=== PATIENT | male | born 1955 | race Caucasian/White ===

== ENCOUNTER → 2017-04-13 | Outpatient (CLI) | payer BC ==
[2017-04-13 13:42] LABS: HCT 47.3 % (39.0-53.0); HGB 14.7 gm/dL (13.0-17.5); MCH 31.2 pg (25.0-35.0); MCHC 31.1 g/dL (31.0-37.0); MCV 100.5 fL (80.0-100.0); Macrocytosis Slight; Mean Platelet Volume 8.3; Platelet Count 194 k/uL (150-450); RBC 4.71 m/uL (4.30-5.90); RDW 13.9 % (11.5-15.5); WBC 5.9 k/uL (3.8-10.6)
[2017-04-13 13:56] LABS: AST 27 U/L (17-59); Anion Gap 9 mmol/L; Blood Urea Nitrogen 16 mg/dL (9-20); Calcium 9.4 mg/dL (8.4-10.2); Carbon Dioxide 30 mmol/L (22-30); Chloride 103 mmol/L (98-107); Cholesterol 179 mg/dL (<200); Glucose 106 mg/dL (74-99); HDL Cholesterol 63 mg/dL (40-60); LDL Cholesterol,Calculated 100 mg/dL (0-99); Potassium 4.2 mmol/L (3.5-5.1); Sodium 142 mmol/L (137-145); Triglycerides 78 mg/dL (<150)
== END | disposition home or self-care (01) ==
LOC: LABWHC1 12:18
PROVIDERS: ATTEND Family Medicine
DX: I10 Essential (primary) hypertension (principal)
CPT/HCPCS: 36415; 80048; 80061; 84443; 84450; 85027

== ENCOUNTER → 2017-08-31 | Outpatient (CLI) | payer BC | END | disposition home or self-care (01) | LOC: LABWHC1 14:25 | PROVIDERS: ATTEND Urology | DX: R97.20 Elevated prostate specific antigen [PSA] (principal) | CPT/HCPCS: 36415; 84153 ==

== ENCOUNTER → 2018-03-01 | Outpatient (CLI) | payer BC ==
--- NOTE | 2018-03-01 13:59 | ECHOS ---
STRESS ECHOCARDIOGRAM DATE OF SERVICE: 03/01/2018 INDICATIONS: Chest pain. MEDICATIONS: BASELINE HEART RATE: 70 BASELINE BLOOD PRESSURE: 122/81 MAXIMUM HEART RATE: 141 MAXIMUM BLOOD PRESSURE: 198/59 85% MPHR: 133 100% MPHR: 157 METS: 10. MAXIMUM STAGE REACHED: III TOTAL EXERCISE TIME: 9 minutes 21 seconds CLINICAL INFORMATION: Baseline rhythm is sinus mechanism, rate of 70, normal axis and intervals. Normal electrocardiogram. Baseline blood pressure 122/81 mmHg. Patient exercised on Gagandeep protocol for 9 minutes 21 seconds achieving peak rate of 141 beats per minute which is equal to 89% of maximum predicted heart rate. Peak blood pressure 198/59 mmHg. Electrocardiograph monitoring revealed no evidence of diagnostic ischemic ST deviation. Baseline echocardiogram revealed normal wall thickening and motion. At peak exercise, there was normal wall motion augmentation with no hypokinesis or dyskinesis. CONCLUSION: 1. Good exercise tolerance with normal electrocardiograph response to exercise. 2. Normal stress echocardiogram with no evidence of stress induced ischemia. MMODL / IJN: [id number] /
== END | disposition home or self-care (01) ==
LOC: RADNMMAIN 09:54
PROVIDERS: ATTEND Family Medicine
DX: R07.89 Other chest pain (principal)
CPT/HCPCS: 93351; Q9950

== ENCOUNTER → 2019-02-19 | Outpatient (CLI) | payer BC ==
--- NOTE | 2019-02-19 14:41 | MR ---
EXAMINATION TYPE: MR Prostate wo/w con DATE OF EXAM: 02/19/2019 COMPARISON: None. IMAGE QUALITY: Good. INDICATION: Elevated prostate specific antigen PSA: 9.82 ng/ml on January 28, 2019. 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 TECHNIQUE: Examination was performed using a 3T MRI without an endorectal coil. Multiparametric imaging was perf ormed with T2 mutliplanar sequences, axial diffusion weighted imaging and dynamic contrast enhanced i maging, utilizing 12 mL intravenous Gadavist gadolinium contrast. FINDINGS: Peripheral zone appears normal on DWI/ADC imaging. Transitional zones shows heterogeneity without definitive area of hypointense signal. Seminal vesicles are within normal limits. Prostate capsule is maintained. No adjacent adenopathy is seen. Bladder shows no suspicious wall thickening or trabeculation. Visualized osseous structures are intact. No groin hernia or adenopathy. Suspicious bowel dilatation. No concerning pelvic fluid is present. Moderate disc space narrowing lumbosacral junction incidental ly noted. PROSTATE VOLUME: 4.5 cm SI x 4.1 cm AP x 5.6 cm LR Vol= 53.4 cc PSA DENSITY: 6.408 ng/ml/cc IMPRESSION: A focus of clinically significant cancer is not identified. Highest Assessment Category: 1 MRI Stage: T0 N0 M0 based on review of pelvic images. False negative rates for MRI range from 5-20% depending on risk profile. Assessment Categories: 1 ? Very low (clinically significant cancer is highly unlikely to be present) 2 ? Low (clinically significant cancer is unlikely to be present) 3 ? Intermediate (the presence of clinically significant cancer is equivocal) 4 ? High (clinically significant cancer is likely to be present) 5 ? Very high (clinically significant cancer is highly likely to be present) Locations: PZ = peripheral zone; TZ = transition zone CZ=central zone; AFS = anterior fibromuscular stroma a=anterior half (i.e. PZa=anterior half of peripheral zone); pm= posterior medial (i.e PZpm) pl = postero-lateral (i.e. PZpl); p = posterior half (i.e. TZp) ; a = anterior half (i.e TZa or P Za) Other: N=no or no; E= equivocal; Y=yes EPE = extraprostatic extension NVB = neurovascular bundle NA = not applicable/not available
== END ==
LOC: RADMRIMAIN 10:45
PROVIDERS: ATTEND Urology
DX: R97.20 Elevated prostate specific antigen [PSA] (principal)
CPT/HCPCS: 72197; A9585

== ENCOUNTER 2019-02-27 14:17 | Observation (INO) | payer BC ==
[2019-02-27] MEDS ORDERED: HEPARIN SODIUM,PORCINE 5,000 UNIT/ML 1 ML VIAL IV PRN (14:30)
[2019-02-27] MEDS ORDERED: HEPARIN SOD,PORK IN 0.45% NACL 25,000 UNIT in 0.45% NACL 1 250ML.BAG IV SCH (14:30)
[2019-02-27] MEDS ORDERED: ACETAMINOPHEN TAB 325 MG TAB PO PRN (14:32)
[2019-02-27] MEDS ORDERED: NALOXONE 0.4 MG/ML 1 ML VIAL IV PRN (14:32)
[2019-02-27] MEDS: DILTIAZEM 125 MG in SODIUM CHLORIDE 0.9% 100 ML IV SCH (14:48)
--- NOTE | 2019-02-27 14:49 | ED ---
General Adult HPI - General Stated complaint: Afib Time Seen by Provider: 02/27/19 14:18 Source: patient, EMS, RN notes reviewed, old records reviewed Mode of arrival: EMS Limitations: no limitations - History of Present Illness Initial comments: 63-year-old male presenting as transfer from outside hospital. Patient was scheduled for an outpatient EGD and colonoscopy, and preop he was found to be in atrial fibrillation with RVR. Patient had no specific complaints, no chest pain or dyspnea. He was initially evaluated at an outside emergency department and transferred to this institution for cardiology evaluation. Patient has history of hypertension, no history of CAD, no history of arrhythmia. Denies any symptoms at the time my evaluation, no fever chills, no abdominal pain, no nausea vomiting. Review of Systems ROS Statement: Those systems with pertinent positive or pertinent negative responses have been documented in the HPI. ROS Other: All systems not noted in ROS Statement are negative. Past Medical History Past Medical History: Atrial Fibrillation, Hypertension History of Any Multi-Drug Resistant Organisms: None Reported Past Surgical History: Hernia Repair Additional Past Surgical History / Comment(s): Hernia repair, left knee surgery Smoking Status: Light tobacco smoker Past Alcohol Use History: Daily General Exam Limitations: no limitations General appearance: alert, in no apparent distress Head exam: Present: atraumatic, normocephalic Eye exam: Present: normal appearance, PERRL ENT exam: Present: normal exam Neck exam: Present: normal inspection. Absent: tenderness, meningismus Respiratory exam: Present: normal lung sounds bilaterally. Absent: respiratory distress, wheezes Cardiovascular Exam: Present: tachycardia, irregular rhythm GI/Abdominal exam: Present: soft. Absent: distended, tenderness, guarding Extremities exam: Present: normal inspection, full ROM. Absent: pedal edema Neurological exam: Present: alert, oriented X3 Psychiatric exam: Present: normal affect, normal mood Skin exam: Present: warm, dry, intact Course Vital Signs 02/27/19 14:20 Temperature 98.1 F Pulse Rate 95 Respiratory 20 Rate Blood Pressure 118/89 O2 Sat by Pulse 96 Oximetry EKG Findings - EKG Comments: EKG Findings:: EKG: Atrial fibrillation, prolonged QT, rate of 88, QRS duration 96, QTC 486, no ST segment elevation. Medical Decision Making - Medical Decision Making 63-year-old male presenting with new onset atrial fibrillation with RVR. Patient's rate is controlled on Carrol nobleip which was initiated prior to transfer. He was also initiated on heparin prior to transfer. These medications will be continued. All laboratory testing will be repeated including CBC, CMP, troponin. These are pending. Case discussed with Dr. Perea, will admit patient with cardiology on consult. Disposition Clinical Impression: New onset atrial fibrillation, Atrial fibrillation with RVR Disposition: ADMITTED IP TO THIS HOSP Condition: Stable Is patient prescribed a controlled substance at d/c from ED?: No Referrals: David Lloyd MD [Primary Care Provider] - 1-2 days Decision to Admit Reason: Admit from EC Decision Date: 02/27/19 Decision Time: 14:49
[2019-02-27 14:56] LABS: Basophils % (A) 1 %; Eosinophils # (A) 0.2 k/uL (0-0.7); Eosinophils % (A) 3 %; HCT 43.3 % (39.0-53.0); HGB 14.1 gm/dL (13.0-17.5); Lymphocytes # (A) 2.6 k/uL (1.0-4.8); Lymphocytes % (A) 38 %; MCH 26.7 pg (25.0-35.0); MCHC 32.5 g/dL (31.0-37.0); MCV 82.1 fL (80.0-100.0); Mean Platelet Volume 7.4; Monocytes # (A) 0.4 k/uL (0-1.0); Monocytes % (A) 6 %; Neutrophils # (A) 3.4 k/uL (1.3-7.7); Neutrophils % (A) 51 %; Platelet Count 246 k/uL (150-450); RBC 5.28 m/uL (4.30-5.90); RDW 15.6 % (11.5-15.5); WBC 6.7 k/uL (3.8-10.6)
[2019-02-27 15:10] LABS: ALT 33 U/L (21-72); AST 39 U/L (17-59); African American GFR (CKD) >90 (>60 ml/min/1.73 sqM); Albumin 4.4 g/dL (3.5-5.0); Alkaline Phosphatase 52 U/L (38-126); Anion Gap 8 mmol/L; Blood Urea Nitrogen 13 mg/dL (9-20); Calcium 9.7 mg/dL (8.4-10.2); Carbon Dioxide 26 mmol/L (22-30); Chloride 105 mmol/L (98-107); Glucose 106 mg/dL (74-99); Non-African American GFR(CKD) >90 (>60 ml/min/1.73 sqM); Sodium 139 mmol/L (137-145); Total Protein 7.1 g/dL (6.3-8.2)
--- NOTE | 2019-02-27 16:51 | P.HPIM ---
History of Present Illness H&P Date: 02/27/19 Chief Complaint: Referred for A. fib with RVR The patient is a 63-year-old male with a past medical history of essential hypertension, GERD, obstructive sleep apnea on CPAP at night who presents to the ER after being referred transferred here from [place] for A. f ib with RVR. 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 fib with RVR and was then referred to the ER at [place]. The patient denied any chest pain, denied any palpitations, denies shortness of breath, denies or extremity swelling, denies history of heart failure. Patient was seen in the ER and started on Cardizem drip and IV heparin and transferred here because the patient lives locally. Review of Systems Pertinent positives per HPI all other review of system otherwise negative Past Medical History Past Medical History: GERD/Reflux, Hypertension, Osteoarthritis (OA), Prostate Disorder, Sleep Apnea/CPAP/BIPAP Additional Past Medical History / Comment(s): Pt states past 2 yrs has had episodes of chest tightness/diaphoresis/shallow breathing/neck stiffness-states he had an echo and treadmill test a year ago that were normal, recent SOB with going up stairs, recent diverticulitis, essential tremors, JESSA with Cpap use, elevated PSA. History of Any Multi-Drug Resistant Organisms: None Reported Past Surgical History: Hernia Repair Additional Past Surgical History / Comment(s): L inguinal hernia repair, L knee arthroscopy, prostate bx-benign, colonoscopy with benign polyp in past. Past Anesthesia/Blood Transfusion Reactions: Postoperative Nausea & Vomiting (PONV) Additional Past Anesthesia/Blood Transfusion Reaction / Comment(s): PONV once with hernia surgery. Past Psychological History: No Psychological Hx Reported Additional Psychological History / Comment(s): Pt resides with his spouse. He is independent. He has a Cpap machine. He retired at 56yrs after working 40 yrs in the [employer] service. Smoking Status: Light tobacco smoker Past Alcohol Use History: Daily Additional Past Alcohol Use History / Comment(s): Pt states he will have an occasional cigar-he started smoking in 1968. Pt states he drinks daily and likes a variety of alcoholic beverages. Past Drug Use History: None Reported - Past Family History Father Family Medical History: Cancer, Diabetes Mellitus Additional Family Medical History / Comment(s): Prostate cancer. Father lived to be 78yrs. Mother History Unknown: Yes Additional Family Medical History / Comment(s): Mother never went to the doctors until very late in life. Pt states she then found out she had some sort of reproductive problem but pt is not sure what it was. She lived to be 85 yrs old. Medications and Allergies Home Medications Medication Instructions Recorded Confirmed Type Aspirin EC [Ecotrin Low Dose] 81 mg PO DAILY 02/27/19 02/27/19 History Losartan/Hydrochlorothiazide 1 tab PO DAILY 02/27/19 02/27/19 History [Losartan-Hctz 100-25 mg Tab] Multivitamins, Thera [Multivitamin 1 tab PO DAILY 02/27/19 02/27/19 History (formulary)] Pantoprazole [Protonix] 40 mg PO DAILY 02/27/19 02/27/19 History Prostate 2.4 Supplement 1 tab PO DAILY 02/27/19 02/27/19 History Ranitidine HCl 300 mg PO DAILY 02/27/19 02/27/19 History Allergies Allergy/AdvReac Type Severity Reaction Status Date / Time No Known Allergies Allergy Verified 02/27/19 14:51 Physical Exam Vitals: Vital Signs Temp Pulse Resp BP Pulse Ox 02/27/19 15:40 105 H 616 H 115/76 95 02/27/19 15:36 105 H 616 H 115/76 95 02/27/19 15:30 100 12 109/83 95 02/27/19 15:20 92 9 L 109/83 93 L 02/27/19 15:10 84 16 109/83 96 02/27/19 15:00 97 19 118/89 95 02/27/19 14:50 88 16 94 L 02/27/19 14:40 88 27 H 118/89 95 02/27/19 14:36 98.1 F 95 20 118/89 96 02/27/19 14:33 98 20 95 02/27/19 14:20 98.1 F 95 20 118/89 96 Intake and Output 02/27/19 02/27/19 02/27/19 06:59 14:59 22:59 Other: Weight 117.934 kg 117.934 kg Constitutional: No acute distress, conversant, pleasant Eyes: Anicteric sclerae, moist conjunctiva, no lid-lag, PERRLA ENMT: NC/AT,Oropharynx clear, no erythema, exudates Neck:Supple, FROM, no masses, or JVD, No carotid bruits; No thyromegaly Lungs: Clear to auscultation, Clear to percussion, Normal respiratory effort, no accessory muscle use Cardiovascular: Irregularly irregular, No murmurs, gallops, or rubs no peripheral edema Abdominal: Soft Nontender, nom distended, no guarding, no rebound or rigidity, Normoactive bowel sounds No hepatomegaly, No splenomegaly, No palpable mass No abdominal wall hernia noted Skin: Normal temperature, tone, texture, turgor, No induration No subcutaneous nodules, No rash, lesions, No ulcers Extremities:No digital cyanosis No clubbing, Pedal pulses intact and symmetrical Radial pulses intact and symmetrical Normal gait and station, No calf tenderness Psychiatric: Alert and oriented to person, place and time, Appropriate affect Intact judgement Neuro: Muscles Strength 5/5 in all 4 extremities, Sensation to light touch grossly present throughout, Cranial nerves II-XII grossly intact. No focal sensory deficits Results CBC & Chem 7: 02/27/19 14:43 02/27/19 14:43 Labs: Abnormal Lab Results - Last 24 Hours (Table) 02/27/19 02/27/19 02/27/19 Range/Units 14:43 14:43 14:43 RDW 15.6 H (11.5-15.5) % APTT 39.2 H (22.0-30.0) sec Glucose 106 H (74-99) mg/dL Thrombosis Risk Factor Assmnt - Choose All That Apply Any of the Below Risk Factors Present?: Yes Each Factor Represents 1 point: Obesity (BMI >25) Other Risk Factors: Yes Each Risk Factor Represents 2 Points: Age 61-74 years Other congenital or acquired thrombophilia - If yes, enter type in comment: No Thrombosis Risk Factor Assessment Total Risk Factor Score: 3 Thrombosis Risk Factor Assessment Level: Moderate Risk Assessment and Plan Assessment: A. fib with RVR Obstructive sleep apnea on CPAP GERD Morbid obesity Plan: The patient is placed in observation status anticipate a lesser than 2 midnight stay with Afib with RVR after presenting earlier to an outside ED with afib w RVR. Echo and TSH was ordered. The patient was started on cardizem ggt and heparin. CHA2 DS2 VASC score of 1, Cardiology is consulted for furhter recommendations. Continue to monitor. Code Status: Full Code anticipated D/C place : home discussed plan of care: and patient
[2019-02-27] MEDS ORDERED: FAMOTIDINE 20 MG TAB PO SCH (21:45)
[2019-02-28 04:34] LABS: Basophils % (A) 1 %; Eosinophils # (A) 0.2 k/uL (0-0.7); Eosinophils % (A) 4 %; HCT 39.7 % (39.0-53.0); HGB 12.6 gm/dL (13.0-17.5); Lymphocytes # (A) 2.3 k/uL (1.0-4.8); Lymphocytes % (A) 38 %; MCH 26.4 pg (25.0-35.0); MCHC 31.8 g/dL (31.0-37.0); Mean Platelet Volume 7.5; Monocytes # (A) 0.5 k/uL (0-1.0); Monocytes % (A) 8 %; Neutrophils # (A) 2.9 k/uL (1.3-7.7); Neutrophils % (A) 48 %; Platelet Count 214 k/uL (150-450); RBC 4.78 m/uL (4.30-5.90); RDW 15.6 % (11.5-15.5); WBC 6.1 k/uL (3.8-10.6)
[2019-02-28] MEDS ORDERED: PANTOPRAZOLE 40 MG TABLET PO SCH (07:30)
[2019-02-28 08:43] VITALS: RESP 18
[2019-02-28] MEDS: DILTIAZEM 125 MG in SODIUM CHLORIDE 0.9% 100 ML IV SCH (08:47)
[2019-02-28] MEDS ORDERED: FAMOTIDINE 20 MG TAB PO SCH (09:00)
[2019-02-28] MEDS ORDERED: MULTIVITAMINS, THERA 1 EACH TAB PO SCH (09:00)
[2019-02-28] MEDS ORDERED: ASPIRIN 81 MG PO SCH (09:00)
--- NOTE | 2019-02-28 09:08 | P.CRDCN ---
History of Present Illness Consult date: 02/28/19 Requesting physician: Natty Perea Consult reason: atrial fibrillation History of present illness: This is a pleasant 63-year-old gentleman with history of hypertension, he is a nondiabetic, no hyperlipidemia, occasionally smokes a cigar, he does have at least 5-6 alcoholic beverages per day. He has recently moved to the [facility], prior to that he lived in the [facility] which is where most of his physicians were located. Patient had had few bouts of diverticulosis and for this reason was scheduled yesterday to undergo a colonoscopy. He was noted to be in atrial fibrillation, was transferred to [place], apparently they had no beds there and patient was subsequently transferred here. According to the patient he has no prior history of atrial fibrillation. He denies any palpitations, shortness of breath, dizziness or lightheadedness. The only thing he states he gets this intermittently a pressure sensation in the left chest wall area and left axilla area. He does state that he underwent a stress test approximately a year ago and subsequent to that underwent other cardiac testing at [place] which was REPORTED to be normal. His EKG on presentation here showed atrial fibrillation with a controlled ventricular response. White blood cell count is normal, hemoglobin 14.1 on admission, 12.6 this morning. Platelet count 214. Sodium 139, potassium 4.0, chloride 105, CO2 26, BUN 13, creatinine 0.8. Troponin 0.012. TSH 1.8. Blood pressure 114/50 with a heart rate in the 80s, 96% on room air. Afebrile. Echo cardiac gram with Doppler study has been performed, results are yet pending. The patient is currently on a baby aspirin along with Cardizem at 5 mg per hour, heparin drip. His home medications included ranitidine 300 mg daily, a prostate supplement, Protonix 40 mg daily, multivitamin daily, aspirin 81 mg daily, and losartan hydrochlorothiazide daily. I did educate the patient regarding anticoagulation for stroke prevention. We will start the patient on Eliquis and check into coverage. We will also discontinue the IV Cardizem and start the patient on beta zoey. Past Medical History Past Medical History: GERD/Reflux, Hypertension, Osteoarthritis (OA), Prostate Disorder, Sleep Apnea/CPAP/BIPAP Additional Past Medical History / Comment(s): Pt states past 2 yrs has had episodes of chest tightness/diaphoresis/shallow breathing/neck stiffness-states he had an echo and treadmill test a year ago that were normal, recent SOB with going up stairs, recent diverticulitis, essential tremors, JESSA with Cpap use, elevated PSA. History of Any Multi-Drug Resistant Organisms: None Reported Past Surgical History: Hernia Repair Additional Past Surgical History / Comment(s): L inguinal hernia repair, L knee arthroscopy, prostate bx-benign, colonoscopy with benign polyp in past. Past Anesthesia/Blood Transfusion Reactions: Postoperative Nausea & Vomiting (PONV) Additional Past Anesthesia/Blood Transfusion Reaction / Comment(s): PONV once with hernia surgery. Past Psychological History: No Psychological Hx Reported Additional Psychological History / Comment(s): Pt resides with his spouse. He is independent. He has a Cpap machine. He retired at 56yrs after working 40 yrs in the [employer] service. Smoking Status: Light tobacco smoker Past Alcohol Use History: Daily Additional Past Alcohol Use History / Comment(s): Pt states he will have an occasional cigar-he started smoking in 1968. Pt states he drinks daily and likes a variety of alcoholic beverages. Past Drug Use History: None Reported - Past Family History Father Family Medical History: Cancer, Diabetes Mellitus Additional Family Medical History / Comment(s): Prostate cancer. Father lived to be 78yrs. Mother History Unknown: Yes Additional Family Medical History / Comment(s): Mother never went to the doctors until very late in life. Pt states she then found out she had some sort of reproductive problem but pt is not sure what it was. She lived to be 85 yrs old. Medications and Allergies Home Medications Medication Instructions Recorded Confirmed Type Aspirin EC [Ecotrin Low Dose] 81 mg PO DAILY 02/27/19 02/27/19 History Losartan/Hydrochlorothiazide 1 tab PO DAILY 02/27/19 02/27/19 History [Losartan-Hctz 100-25 mg Tab] Multivitamins, Thera [Multivitamin 1 tab PO DAILY 02/27/19 02/27/19 History (formulary)] Pantoprazole [Protonix] 40 mg PO DAILY 02/27/19 02/27/19 History Prostate 2.4 Supplement 1 tab PO DAILY 02/27/19 02/27/19 History Ranitidine HCl 300 mg PO DAILY 02/27/19 02/27/19 History Allergies Allergy/AdvReac Type Severity Reaction Status Date / Time No Known Allergies Allergy Verified 02/27/19 14:51 Physical Exam Vitals: Vital Signs Temp Pulse Pulse Resp BP BP Pulse Ox 02/28/19 08:00 98.3 F 86 18 114/54 96 02/28/19 05:04 97.8 F 84 16 121/73 97 02/27/19 23:16 95 16 143/78 97 02/27/19 21:40 98.1 F 95 16 131/81 95 02/27/19 17:56 89 20 123/85 02/27/19 17:30 101 H 18 119/85 95 02/27/19 17:20 93 12 119/85 97 02/27/19 17:00 105 H 616 H 123/85 95 02/27/19 16:50 123/85 02/27/19 16:40 89 20 123/85 93 L 02/27/19 16:30 85 18 114/90 94 L 02/27/19 16:20 89 16 114/90 95 02/27/19 16:10 92 16 114/90 94 L 02/27/19 16:00 85 18 115/76 90 L 02/27/19 15:50 93 20 115/76 96 02/27/19 15:40 105 H 616 H 115/76 95 02/27/19 15:36 105 H 616 H 115/76 95 02/27/19 15:30 100 12 109/83 95 02/27/19 15:20 92 9 L 109/83 93 L 02/27/19 15:10 84 16 109/83 96 02/27/19 15:00 97 19 118/89 95 02/27/19 14:50 88 16 94 L 02/27/19 14:40 88 27 H 118/89 95 02/27/19 14:36 98.1 F 95 20 118/89 96 02/27/19 14:33 98 20 95 02/27/19 14:20 98.1 F 95 20 118/89 96 Intake and Output 02/27/19 02/28/19 02/28/19 22:59 06:59 14:59 Intake Total 71.833 116.878 89.917 Balance 71.833 116.878 89.917 Intake: Intake, IV Titration 71.833 116.878 89.917 Amount Diltiazem 125 mg In 89.917 Sodium Chloride 0.9% 100 ml @ 5 MG/HR 5 mls/hr IV .Q24H TAMAR Rx#:[id number] Heparin Sod,Pork in 0.45% 71.833 116.878 NaCl 25,000 unit In 0.45 % NaCl 1 250ml.bag @ 8. 479 UNITS/KG/HR 10 mls/hr IV .Q24H TAMAR Rx#: [id number] Other: Voiding Method Toilet Toilet # Voids 1 Weight 117.934 kg PHYSICAL EXAMINATION: GENERAL: 63-year-old gentleman in no acute distress at the time of my examination HEENT: Head is atraumatic, normocephalic. Pupils equal, round. Sclera anicter ic. Conjunctiva are clear. Mucous membranes of the mouth are moist. Neck is supple. There is no elevated jugular venous pressure. No carotid bruit is heard. HEART EXAMINATION: Heart S1 and S2 irregularly irregular CHEST EXAMINATION: Lungs are clear to auscultation and precussion. No chest wall tenderness is noted on palpation or with deep breathing. ABDOMEN: Soft, nontender. Bowel sounds are heard. No organomegaly noted. EXTREMITIES: 2+ peripheral pulses with trace evidence of peripheral edema and no calf tenderness noted. NEUROLOGIC patient is awake, alert and oriented 3 . . Results 02/28/19 04:05 02/27/19 14:43 Cardiac Enzymes 02/27/19 02/27/19 Range/Units 14:43 14:43 AST 39 (17-59) U/L Troponin I <0.012 (0.000-0.034) ng/mL Coagulation 02/27/19 02/27/19 02/28/19 Range/Units 14:43 20:48 04:05 APTT 39.2 H 30.9 H 42.7 H (22.0-30.0) sec CBC 02/27/19 02/28/19 Range/Units 14:43 04:05 WBC 6.7 6.1 (3.8-10.6) k/uL RBC 5.28 4.78 (4.30-5.90) m/uL Hgb 14.1 12.6 L (13.0-17.5) gm/dL Hct 43.3 39.7 (39.0-53.0) % Plt Count 246 214 (150-450) k/uL Comprehensive Metabolic Panel 02/27/19 Range/Units 14:43 Sodium 139 (137-145) mmol/L Potassium 4.0 (3.5-5.1) mmol/L Chloride 105 (98-107) mmol/L Carbon Dioxide 26 (22-30) mmol/L BUN 13 (9-20) mg/dL Creatinine 0.80 (0.66-1.25) mg/dL Glucose 106 H (74-99) mg/dL Calcium 9.7 (8.4-10.2) mg/dL AST 39 (17-59) U/L ALT 33 (21-72) U/L Alkaline Phosphatase 52 (38-126) U/L Total Protein 7.1 (6.3-8.2) g/dL Albumin 4.4 (3.5-5.0) g/dL Current Medications Generic Name Dose Route Start Last Admin Trade Name Freq PRN Reason Stop Dose Admin Acetaminophen 650 mg 02/27/19 14:32 02/27/19 23:12 Tylenol Tab PO 650 mg Q6HR PRN Administration Mild Pain or Fever > 100.5 Aspirin 81 mg 02/28/19 09:00 02/28/19 08:35 Aspirin PO 81 mg DAILY TAMAR Administration Famotidine 40 mg 02/27/19 21:45 02/27/19 21:51 Pepcid PO 40 mg HS TAMAR Administration Heparin Sodium (Porcine) 0 unit 02/27/19 14:30 02/27/19 14:54 Heparin IV 4,000 unit PER PROTOCOL PRN Administration Low PTT Protocol Heparin Sodium/Sodium Chloride 250 mls @ 10 mls/hr 02/27/19 14:30 02/28/19 06:44 25,000 unit/ Sodium Chloride IV 13.479 units/kg/hr .Q24H TAMAR 15.896 mls/hr Titration Protocol 8.479 UNITS/KG/HR Diltiazem HCl 125 mg/ Sodium 125 mls @ 5 mls/hr 02/27/19 14:30 02/27/19 14:48 Chloride IV 5 mg/hr .Q24H TAMAR 5 mls/hr Administration 5 MG/HR Multivitamins 1 each 02/28/19 09:00 02/28/19 08:35 Theragran PO 1 each DAILY TAMAR Administration Naloxone HCl 0.2 mg 02/27/19 14:32 Narcan IV Q2M PRN Opioid Reversal Pantoprazole Sodium 40 mg 02/28/19 07:30 02/28/19 06:45 Protonix PO 40 mg [id number] TAMAR Administration Intake and Output 02/27/19 02/28/19 02/28/19 22:59 06:59 14:59 Intake Total 71.833 116.878 89.917 Balance 71.833 116.878 89.917 Intake: Intake, IV Titration 71.833 116.878 89.917 Amount Diltiazem 125 mg In 89.917 Sodium Chloride 0.9% 100 ml @ 5 MG/HR 5 mls/hr IV .Q24H TAMAR Rx#:[id number] Heparin Sod,Pork in 0.45% 71.833 116.878 NaCl 25,000 unit In 0.45 % NaCl 1 250ml.bag @ 8. 479 UNITS/KG/HR 10 mls/hr IV .Q24H TAMAR Rx#: [id number] Other: Voiding Method Toilet Toilet # Voids 1 Weight 117.934 kg 02/28/19 04:05 02/27/19 14:43 EKG Interpretations (text) EKG shows atrial fibrillation with a controlled ventricular response Assessment and Plan Plan: Assessment and plan #1 atrial fibrillation, appears to be of new onset, rate under good control #2 hypertension #3 EtOH use of at least 5 alcoholic beverages on a daily basis #4 occasional cigar use Plan We will review the echocardiogram with Doppler study, discontinue IV heparin and initiate Eliquis. Discontinue aspirin. Discontinue Cardizem drip and start the patient on a beta zoey. We will also obtain records from [place] on patient's prior cardiac workup. Further recommendations to follow. DNP note has been reviewed, I agree with a documented findings and plan of care. Patient was seen and examined.
[2019-02-28] MEDS ORDERED: APIXABAN 5 MG TAB PO SCH (09:15)
[2019-02-28] MEDS ORDERED: METOPROLOL TARTRATE 25 MG TAB PO SCH (09:15)
--- NOTE | 2019-02-28 10:27 | ECHOF ---
Referral Reason:A fib w RVR MEASUREMENTS -------- HEIGHT: 180.3 cm WEIGHT: 117.9 kg BP: 121/73 RVIDd: 3.0 cm (< 3.3) IVSd: 1.1 cm (0.6 - 1.1) LVIDd: 4.7 cm (3.9 - 5.3) LVPWd: 1.2 cm (0.6 - 1.1) IVSs: 1.4 cm LVIDs: 3.6 cm LVPWs: 1.4 cm LA Diam: 4.3 cm (2.7 - 3.8) LAESV Index (A-L): 40.86 ml/m Ao Diam: 3.3 cm (2.0 - 3.7) AV Cusp: 2.3 cm (1.5 - 2.6) MV EXCURSION: 18.742 mm (> 18.000) MV EF SLOPE: 128 mm/s (70 - 150) EPSS: 0.5 cm RAP: 5.00 mmHg RVSP: 29.26 mmHg FINDINGS -------- Atrial fibrillation. This was a technically difficult study with suboptimal apical views. The left ventricular size is normal. There is borderline concentric left ventricular hypertrophy. Overall left ventricular systolic function is mildly impaired with, an EF between 45 - 50 %. The right ventricle is normal in size. LA is severely dilated >40 ml/m2 The right atrium is normal in size. 5 ml of Lumason was utilized for enhancement of images. Interatrial and interventricular septum intact. The aortic valve is trileaflet and appears structurally normal. Mild mitral regurgitation is present. Mild tricuspid regurgitation present. Right ventricular systolic pressure is normal at < 35 mmHg. Trace/mild (physiologic) pulmonic regurgitation. The aortic root size is normal. Normal inferior vena cava with normal inspiratory collapse consistent with estimated right atrial pre ssure of 5 mmHg. There is no pericardial effusion. CONCLUSIONS -------- 1. Atrial fibrillation. 2. This was a technically difficult study with suboptimal apical views. 3. The left ventricular size is normal. 4. There is borderline concentric left ventricular hypertrophy. 5. Overall left ventricular systolic function is mildly impaired with, an EF between 45 - 50 %. 6. The right ventricle is normal in size. 7. LA is severely dilated >40 ml/m2 8. The right atrium is normal in size. 9. 5 ml of Lumason was utilized for enhancement of images. 10. Interatrial and interventricular septum intact. 11. The aortic valve is trileaflet and appears structurally normal. 12. Mild mitral regurgitation is present. 13. Mild tricuspid regurgitation present. 14. Right ventricular systolic pressure is normal at < 35 mmHg. 15. Trace/mild (physiologic) pulmonic regurgitation. 16. The aortic root size is normal. 17. Normal inferior vena cava with normal inspiratory collapse consistent with estimated right atrial pressure of 5 mmHg. 18. There is no pericardial effusion. SALON SHAMPOO ASSISTANT: Graciela Saez RDCS
[2019-02-28 11:51] VITALS: BP 119/79; PULSE 81; TEMP 98.2
--- NOTE | 2019-02-28 13:22 | P.DS ---
Providers Date of admission: 02/27/19 14:32 Expected date of discharge: 02/28/19 Attending physician: Natty Perea DO Consults: 02/27/19 14:33 Consult Physician Routine Consulting Provider: Manas Patel Consult Reason/Comments: New-onset atrial fibrillation with RVR Do you want consulting provider notified?: Yes Primary care physician: David Gabino [facility] Course: Discharge diagnosis A. fib with RVR Chronic Systolic CHF Essential hypertension GERD obstructive sleep apnea morbid obesity Hospital course The patient is a 63-year-old male that was admitted with A. fib with RVR after being transferred from [facility] where he was started on IV Cardizem and IV heparin, workup with TSH chest x-ray was normal, the patient was rate controlled and was transitioned from IV Cardizem to oral metoprolol and was transitioned from IV heparin to DOAC with Eliquis. Echocardiogram showed a mildly impaired LV systolic function of 45-50 with a severely dilated left atrium. The patient was in any acute heart failure exacerbation and was clinically euvolemic. The patient was subsequently discharged home in A. fib with a controlled rate and instructed to follow-up with cardiology. This discharge process took approximately 30 minutes. Focused exam Cardiovascular: Irregularly irregular, no murmur rubs or gallops Patient Condition at Discharge: Stable Plan - Discharge Summary Discharge Rx Participant: No New Discharge Prescriptions: New Apixaban [Eliquis] 5 mg PO BID #60 tab Apixaban [Eliquis] 5 mg PO BID tab Metoprolol Tartrate [Lopressor] 25 mg PO BID #60 tab Losartan Potassium 50 mg PO DAILY #30 tablet Metoprolol Tartrate [Lopressor] 25 mg PO BID #60 tablet Continue Ranitidine HCl 300 mg PO DAILY Pantoprazole [Protonix] 40 mg PO DAILY Multivitamins, Thera [Multivitamin (formulary)] 1 tab PO DAILY Aspirin EC [Ecotrin Low Dose] 81 mg PO DAILY Prostate 2.4 Supplement 1 tab PO DAILY Discontinued Losartan/Hydrochlorothiazide [Losartan-Hctz 100-25 mg Tab] 1 tab PO DAILY Discharge Medication List Aspirin EC [Ecotrin Low Dose] 81 mg PO DAILY 02/27/19 [History] Multivitamins, Thera [Multivitamin (formulary)] 1 tab PO DAILY 02/27/19 [History] Pantoprazole [Protonix] 40 mg PO DAILY 02/27/19 [History] Prostate 2.4 Supplement 1 tab PO DAILY 02/27/19 [History] Ranitidine HCl 300 mg PO DAILY 02/27/19 [History] Apixaban [Eliquis] 5 mg PO BID tab 02/28/19 [Rx] Apixaban [Eliquis] 5 mg PO BID #60 tab 02/28/19 [Rx] Losartan Potassium 50 mg PO DAILY #30 tablet 02/28/19 [Rx] Metoprolol Tartrate [Lopressor] 25 mg PO BID #60 tab 02/28/19 [Rx] Metoprolol Tartrate [Lopressor] 25 mg PO BID #60 tablet 02/28/19 [Rx] Follow up Appointment(s)/Referral(s): Manas Patel MD [STAFF PHYSICIAN] - 2 Weeks (Spoke to medical office receptionist assistant. Office to call with appointment time) David Lloyd MD [Primary Care Provider] - 1-2 days (Office is closed. Please call to schedule appointment) Patient Instructions/Handouts: A-fib (Atrial Fibrillation) (DC), Safe Use of Anticoagulants (DC) Activity/Diet/Wound Care/Special Instructions: Eliquis is covered by his insurance with a copay of $90/month. Free 30 day coupon applied, pharmacy will also give the patient a $10 copay card when they deliver the medication for him to use on his refills. Discharge Disposition: HOME SELF-CARE
== END 2019-02-28 13:55 | disposition home or self-care (01) ==
LOC: EC 14:17 → INTOOBSV 14:32 → 3SCARD 14:32
PROVIDERS: ADMIT Internal Medicine; ATTEND Internal Medicine
DX: I48.91 Unspecified atrial fibrillation (principal); I11.0 Hypertensive heart disease with heart failure; I50.22 Chronic systolic (congestive) heart failure; E66.01 Morbid (severe) obesity due to excess calories; F17.290 Nicotine dependence, other tobacco product, uncomplicated; G25.0 Essential tremor; G47.33 Obstructive sleep apnea (adult) (pediatric); K21.9 Gastro-esophageal reflux disease without esophagitis; K57.90 Diverticulosis of intestine, part unspecified, without perforation or abscess without bleeding; Z79.82 Long term (current) use of aspirin; Z79.899 Other long term (current) drug therapy; Z80.42 Family history of malignant neoplasm of prostate; Z83.3 Family history of diabetes mellitus; Z99.89 Dependence on other enabling machines and devices
CPT/HCPCS: 96366 ×3; 96376; 96368; 96365; 99285; 36415; 93005; 93306; 80053; 84443; 84484; 85025 ×2; 85730 ×2; G0378 ×2; J1644 ×2; Q9950

== ENCOUNTER 2019-03-18 07:32 | Day surgery (SDC) | payer BC ==
[2019-03-13 14:52] VITALS: BMI 36.9
[~2019-03-18 07:32] MED LIST: SODIUM CHLORIDE 0.9% 1,000 ML IV SCH
[2019-03-18] MEDS ORDERED: METOPROLOL TARTRATE 25 MG TAB PO STA (07:48)
[2019-03-18 07:56] VITALS: TEMP 97.6
[2019-03-18] MEDS ORDERED: PROPOFOL 10 MG/ML 20 ML VIAL IV ONE (08:28)
[2019-03-18] MEDS ORDERED: SODIUM CHLORIDE 0.9% 500 ML 500 ML IV ONE (09:00)
[2019-03-18] MEDS ORDERED: SODIUM CHLORIDE 0.9% 1,000 ML IV SCH (09:15)
[2019-03-18 09:18] VITALS: RESP 16
--- NOTE | 2019-03-18 09:55 | EST ---
EXERCISE STRESS INDICATION: Atrial fibrillation. PROCEDURE: After explaining the procedure to the patient, its risks and the complications, his blood pressure, heart rate, O2 saturation was monitored. The throat was sprayed with Cetacaine. He received sedation per Anesthesia Department. The probe was introduced into the esophagus without difficulty. Images were obtained. Following that, the probe was removed. There was no immediate complication. FINDINGS: Left atrial size is mildly dilated. Left atrial appendage revealed a suggestion of thrombus. The aortic valve, mitral and tricuspid valve is normal. Left ventricular size is normal. There is evidence of global hypokinesis. Ejection fraction is estimated at 45%. The descending thoracic aorta appears to be normal. Contrast bubble study revealed no significant shunting across the interatrial septum. No pericardial effusion was noted. Doppler pulse wave and color Doppler obtained and revealed moderate mitral with mild to moderate tricuspid regurgitation. There was no shunting by color Doppler study. Trace pulmonic regurgitation was noted. CONCLUSION: 1. Dilated left atrium with the appearance of thrombus in the left atrial appendage. 2. Normal left ventricular size with mild global hypokinesis. 3. Moderate mitral with mild to moderate tricuspid regurgitation. 4. Trace pulmonic regurgitation. 5. No evidence of shunting across the intra-atrial septum. 6. No pericardial effusion. 7. Normal appearance of the descending thoracic aorta. MMODL / IJN: [id number] /
[2019-03-18 11:00] VITALS: BP 140/84; PULSE 78
[2019-03-18] MEDS ORDERED: APIXABAN 5 MG TAB PO SCH (21:00)
[2019-03-18] MEDS ORDERED: METOPROLOL TARTRATE 25 MG TAB PO SCH (21:00)
[2019-03-19] MEDS ORDERED: PANTOPRAZOLE 40 MG TABLET PO SCH (07:30)
[2019-03-19] MEDS ORDERED: MULTIVITAMINS, THERA 1 EACH TAB PO SCH (09:00)
[2019-03-19] MEDS ORDERED: LOSARTAN 50 MG TAB PO SCH (09:00)
[2019-03-19] MEDS ORDERED: FAMOTIDINE 20 MG TAB PO SCH (09:00)
== END 2019-03-18 10:30 | disposition home or self-care (01) ==
LOC: CATHCVL 07:32
PROVIDERS: ATTEND Internal Medicine Interventional Cardiology
DX: I08.1 Rheumatic disorders of both mitral and tricuspid valves (principal); I48.91 Unspecified atrial fibrillation; F17.210 Nicotine dependence, cigarettes, uncomplicated; I10 Essential (primary) hypertension; G47.33 Obstructive sleep apnea (adult) (pediatric); N40.0 Benign prostatic hyperplasia without lower urinary tract symptoms; G25.0 Essential tremor; K21.9 Gastro-esophageal reflux disease without esophagitis; Z79.82 Long term (current) use of aspirin; Z79.01 Long term (current) use of anticoagulants; Z79.899 Other long term (current) drug therapy
CPT/HCPCS: 93312; 93320; 93325; J2704

== ENCOUNTER → 2019-07-03 | Outpatient (CLI) | payer BC ==
[2019-07-03 12:10] LABS: HCT 42.2 % (39.0-53.0); HGB 12.9 gm/dL (13.0-17.5); Hypochromasia Moderate; MCH 25.9 pg (25.0-35.0); MCHC 30.6 g/dL (31.0-37.0); MCV 84.6 fL (80.0-100.0); Mean Platelet Volume 8.6; Platelet Count 222 k/uL (150-450); RBC 4.99 m/uL (4.30-5.90); RDW 14.7 % (11.5-15.5); WBC 7.1 k/uL (3.8-10.6)
[2019-07-03 12:19] LABS: African American GFR (CKD) >90 (>60 ml/min/1.73 sqM); Anion Gap 10 mmol/L; Blood Urea Nitrogen 14 mg/dL (9-20); Carbon Dioxide 23 mmol/L (22-30); Chloride 105 mmol/L (98-107); Non-African American GFR(CKD) 88 (>60 ml/min/1.73 sqM); Potassium 4.1 mmol/L (3.5-5.1); Sodium 138 mmol/L (137-145)
== END | disposition home or self-care (01) ==
LOC: LABPAT 11:49
PROVIDERS: ATTEND Internal Medicine Interventional Cardiology
DX: Z01.818 Encounter for other preprocedural examination (principal); I42.8 Other cardiomyopathies
CPT/HCPCS: 36415; 80051; 82565; 84520; 85027

== ENCOUNTER → 2019-07-23 | Day surgery (SDC) | payer BC ==
[2019-07-04 15:18] VITALS: BMI 36.9
[~2019-07-23] MED LIST changes: +APIXABAN 5 MG TAB PO SCH; +FAMOTIDINE 20 MG TAB PO SCH; +LACTATED RINGERS 1,000 ML IV SCH; +LIDOCAINE 1% (10MG/ML) FOR IV START INTRADERMA PRN; +LOSARTAN 50 MG TAB PO SCH; +METOPROLOL TARTRATE 25 MG TAB PO SCH; +MULTIVITAMINS, THERA 1 EACH TAB PO SCH; +PANTOPRAZOLE 40 MG TABLET PO SCH; +PROPOFOL 10 MG/ML 20 ML VIAL IV ONE; +PROSTATE SUPPLEMENT PO SCH
[2019-07-23 06:32] VITALS: TEMP 97.8
[2019-07-23 07:31] VITALS: RESP 16
--- NOTE | 2019-07-23 09:13 | ECHOT ---
TRANSESOPHAGEAL ECHOCARDIOGRAM INDICATION: Evaluation left atrial appendage. PROCEDURE: After explaining the procedure to the patient, its risks and complication, the throat was sprayed with Cetacaine He received sedation per Anesthesia Department. The probe was introduced into the esophagus without difficulties. Images were obtained. Following that, the probe was removed. There was no immediate complication. FINDINGS: Biatrial enlargement was noted. There was a question of a thrombus in left atrial appendage and contrast was given that showed no evidence of thrombus. Left ventricular size is normal. There is mild global hypokinesis. Estimated ejection fraction 45% to 50%. The aortic valve revealed fibrocalcific change with aortic cusp with preserved opening. Mitral valve appears to be normal. Tricuspid valve is normal. Descending thoracic aorta appears to be normal. No pericardial effusion was noted. Contrast bubble study revealed no evidence of shunting across the interatrial septum. No pericardial effusion was noted. Doppler pulse wave and color Doppler obtained and revealed moderate mitral and tricuspid regurgitation. There was no shunting by color Doppler study. CONCLUSION: 1. Biatrial enlargement. 2. Normal left ventricular size with mild global hypokinesis. 3. Moderate mitral and tricuspid regurgitation. 4. Normal appearance left atrial appendage. 5. Normal appearance of the descending thoracic aorta. MMODL / IJN: [id number] /
[2019-07-23 09:22] VITALS: BP 132/81; PULSE 84
--- NOTE | 2019-07-23 09:25 | CE ---
CARDIAC ELECTROPHYSIOLOGY REPORT CARDIOVERSION PROCEDURE NOTE: INDICATION: Atrial fibrillation. PROCEDURE: After explaining the procedure to the patient, its risks and the complications, his blood pressure, heart rate, O2 saturation was monitored. After obtaining sedated state and performing transesophageal echocardiogram, a synchronized biphasic cardioversion using 200, 250 and 300 joules were performed with inability to restore sinus mechanism. There was no immediate complication. CHERYL / NENON: [id number] /
--- NOTE | 2019-07-23 10:43 | ECHOT ---
TRANSESOPHAGEAL ECHOCARDIOGRAM INDICATION: Evaluation left atrial appendage. PROCEDURE: After explaining the procedure to the patient, its risks and complication, his blood pressure, heart rate, O2 saturation were monitored. His throat was sprayed with Cetacaine. He received sedation per Anesthesia Department. The probe was introduced into esophagus without difficulty. Images were obtained. Following that, the probe was removed. There was no immediate complication. FINDINGS: Right atrial size is dilated. Left atrial appendage is normal. There was a question of an artifact and Lumason was given and there was no evidence of thrombus. Left ventricular size is normal. There is mild global hypokinesis, estimated ejection fraction 45%. The aortic valve appears to be normal. Mitral valve appears to be normal. Tricuspid valve appears to be normal. Contrast bubble study revealed no evidence of shunting across the interatrial septum. The descending thoracic aorta appears to be normal. No pericardial effusion was noted. Doppler pulse wave obtained revealed moderate mitral and tricuspid regurgitation. There was no shunting by color Doppler study. CONCLUSION: 1. Biatrial enlargement with no evidence of thrombus in the left atrial appendage. 2. Normal left ventricular size with mild global hypokinesis. 3. Moderate mitral and tricuspid regurgitation. 4. No shunting across the interatrial septum. 5. Normal appearance of the descending thoracic aorta. MMODL / IJN: [id number] /
== END | disposition home or self-care (01) ==
LOC: CATHCVL 06:04
PROVIDERS: ATTEND Internal Medicine Interventional Cardiology
DX: I08.1 Rheumatic disorders of both mitral and tricuspid valves (principal); I48.21 Permanent atrial fibrillation; I42.8 Other cardiomyopathies; I11.0 Hypertensive heart disease with heart failure; I50.9 Heart failure, unspecified; G47.33 Obstructive sleep apnea (adult) (pediatric); F17.210 Nicotine dependence, cigarettes, uncomplicated; Z79.01 Long term (current) use of anticoagulants; Z79.899 Other long term (current) drug therapy
CPT/HCPCS: 93312; 92960; 87635; J2704; Q9950

== ENCOUNTER → 2020-07-17 | Outpatient (CLI) | payer MEDICARE, BC | END | disposition home or self-care (01) | LOC: LABWHC1 14:45 | PROVIDERS: ATTEND Urology | DX: Z01.812 Encounter for preprocedural laboratory examination (principal); Z20.822 Contact with and (suspected) exposure to COVID-19 | CPT/HCPCS: U0003; C9803; U0005 ==

== ENCOUNTER → 2020-12-18 | Outpatient (CLI) | payer MEDICARE, BC | END | disposition home or self-care (01) | LOC: LABWHC1 14:56 | PROVIDERS: ATTEND Urology | DX: C61 Malignant neoplasm of prostate (principal) | CPT/HCPCS: 36415; 84153; 84403 ==

== ENCOUNTER → 2020-12-23 | Outpatient (CLI) | payer MEDICARE, BC ==
--- NOTE | 2020-12-23 17:37 | CONS ---
CONSULTATION DATE OF SERVICE: 12/23/2020 65-year-old gentleman has been evaluated in [facility] Center for obstructive sleep apnea- hypopnea syndrome. HISTORY OF PRESENT ILLNESS/ SLEEP-WAKE EVALUATION: The patient has history of obstructive sleep apnea for many years. Last diagnostic sleep study done about 5 years ago but as a home test. AHI 52.8. The patient continues to use his CPAP equipment every night. SLEEP SCHEDULE: His sleep schedule from 1 a.m. until 9:30 a.m. basically 7 days a week. FALLING ASLEEP: No problems with falling asleep. No TV in bedroom. DURING SLEEP: Usually sleeps on the side position. He wakes up from sleep twice with nocturia. DURING THE DAY/SLEEP WAKE EVALUATION: In the morning, he wakes up tired. Has difficulties to pay attention, falling asleep during the day, has problems with concentration and irritability. At present, he is using a [employer] dream Station 1, which has been report. [place] Sleepiness Scale is 4. Usually he does not take naps. No history of sleep paralysis or cataplexy. PAST MEDICAL HISTORY: Positive for episodes of atrial fibrillation, converted to normal sinus rhythm after 2 cardioversions last in February 2020. No episodes of atrial fibrillation since that time; acid reflux, hypothyroidism, prostate CA, hypertension. PAST SURGICAL HISTORY: Hernia repair, cardioversions. CURRENT MEDICATIONS: Losartan 50 mg once a day, metoprolol 25 mg twice a day, Eliquis 5 mg twice a day, furosemide 20 mg once a day, pantoprazole 40 mg once a day, famotidine 40 mg once a day. Dutasteride 0.5 mg once a day. Levothyroxine 75 mcg once a day. SOCIAL HISTORY: Negative for smoking or alcohol consumption. One glass of wine daily. FAMILY HISTORY: Hypertension, heart problems, diabetes. REVIEW OF SYSTEMS: Awakenings from sleep. PHYSICAL EXAMINATION: GENERAL: A gentleman without distress. BP 122/76, HR 58, RR 12, height 5 feet 11 inches, weight 251.2, temperature 97.1, oxygen saturation at room air 90%. Body mass index 35.0. Oropharynx: Low position of soft palate, Mallampati 3. NECK is wide 17 inches in circumference. Neck: Supple, no JVD. Thyroid is not palpable. LUNGS: Clear to percussion and to auscultation. Good air exchange. No wheezing or rhonchi. HEART: S1, S2 regular. No murmurs, gallops, or rubs. ABDOMEN: Slightly obese. Soft and nontender. Bowel sounds are present. No organomegaly appreciated. EXTREMITIES: No clubbing or cyanosis. ABSTRACT MAKER: Awake, alert, and oriented X3. Cranial nerves 2 to 7 intact. There is no fasciculation or atrophy. noted. No focal deficits observed. IMPRESSION: 1. Obstructive sleep apnea-hypopnea syndrome for about 30 years. The patient continues to use his machine, but sometimes wakes up from sleep while using machine. May feel excessive fatigue and sleepiness during the day. Low position of soft palate, Mallampati 3, wide neck, 17 inches in circumference, obstructive sleep apnea-hypopnea syndrome. 2. Obesity, body mass index 35.0. 3. Hypertension. 4. History of atrial fibrillation status post 2 cardioversions last in February 2020. No episodes of atrial fibrillation since that time. 5. Acid reflux. 6. Hypothyroidism. 7. History of prostate carcinoma. 8. Status post hernia repair. PLAN: 1. Get results of previous sleep studies. It [facility]. 2. CPAP, if necessary BiPAP titration for evaluation of effective pressure at the present time. 3. The patient may qualify for a new machine after the sleep study. We will try to replace CPAP unit because it is [employer] dream Station 1, which has been recalled. 4. Watching and losing weight. 5. No driving if feeling sleepiness. 6. Sleep hygiene with regular time in bed for at least 8 hours. Thank you very much for referring this patient for consultation. Sincerely, Kai Lopez MD, PhD, FAASM Diplomat of [place] [employer] Sleep Medicine Board of [place] [employer] Quality Control Technician of [facility] [place] MMODL / NENON: [id number] / ALBER
== END ==
LOC: SLEEP 13:35
PROVIDERS: ATTEND Internal Medicine
DX: G47.33 Obstructive sleep apnea (adult) (pediatric) (principal); E66.9 Obesity, unspecified; K21.9 Gastro-esophageal reflux disease without esophagitis; E03.9 Hypothyroidism, unspecified; I10 Essential (primary) hypertension; F17.200 Nicotine dependence, unspecified, uncomplicated; Z85.46 Personal history of malignant neoplasm of prostate; Z98.890 Other specified postprocedural states; I48.91 Unspecified atrial fibrillation; Z68.35 Body mass index [BMI] 35.0-35.9, adult; Z79.899 Other long term (current) drug therapy
CPT/HCPCS: 99211

== ENCOUNTER → 2021-06-28 | Outpatient (CLI) | payer MEDICARE, BC ==
--- NOTE | 2021-06-29 06:53 | ECHOF ---
Referral Reason:I48.11 Longstanding persistent atrial fibrillation MEASUREMENTS -------- HEIGHT: 182.9 cm WEIGHT: 117.9 kg BP: 116/71 RVIDd: 2.7 cm (< 3.3) IVSd: 1.0 cm (0.6 - 1.1) LVIDd: 5.7 cm (3.9 - 5.3) LVPWd: 1.0 cm (0.6 - 1.1) IVSs: 1.5 cm LVIDs: 4.1 cm LVPWs: 1.8 cm LA Diam: 3.5 cm (2.7 - 3.8) LAESV Index (A-L): 26.95 ml/m Ao Diam: 3.5 cm (2.0 - 3.7) AV Cusp: 2.4 cm (1.5 - 2.6) MV EXCURSION: 15.488 mm (> 18.000) MV EF SLOPE: 115 mm/s (70 - 150) EPSS: 0.6 cm MV E Kirk: 0.62 m/s MV DecT: 277 ms MV A Kirk: 0.81 m/s MV E/A Ratio: 0.76 RAP: 5.00 mmHg RVSP: 27.32 mmHg FINDINGS -------- Sinus rhythm. This was a technically adequate study. The left ventricular size is normal. Left ventricular wall thickness is normal. Overall left vent ricular systolic function is normal with, an EF between 55 - 60 %. The diastolic filling pattern is normal for the age of the patient 9.43. The right ventricle is normal in size. Normal LA size by volume 22+/-6 ml/m2. The right atrial size is normal. Aneurysmal Interatrial septum. The aortic valve is trileaflet, and appears structurally normal. No aortic stenosis or regurgitation. The mitral valve is normal. Mild mitral regurgitation is present. The tricuspid valve appears structurally normal. Mild tricuspid regurgitation present. Right vent ricular systolic pressure is normal at < 35 mmHg. There is no pulmonic regurgitation present. The aortic root size is normal. Normal inferior vena cava with normal inspiratory collapse consistent with estimated right atrial pre ssure of 5 mmHg. There is no pericardial effusion. CONCLUSIONS -------- 1. Left ventricular wall thickness is normal. 2. Overall left ventricular systolic function is normal with, an EF between 55 - 60 %. 3. Normal LA size by volume 22+/-6 ml/m2. 4. Aneurysmal Interatrial septum. 5. The aortic valve is trileaflet, and appears structurally normal. No aortic stenosis or regurgitati on. 6. Mild mitral regurgitation is present. 7. Mild tricuspid regurgitation present. 8. There is no pericardial effusion. DEFENSE ANALYST: Graciela Saez RDCS
== END | disposition home or self-care (01) ==
LOC: RADECHMAIN 15:05
PROVIDERS: ATTEND Internal Medicine Cardiovascular Disease
DX: I08.1 Rheumatic disorders of both mitral and tricuspid valves (principal); I25.3 Aneurysm of heart
CPT/HCPCS: 93306

== ENCOUNTER → 2021-07-30 | Outpatient (CLI) | payer MEDICARE, BC ==
[2021-07-30 12:57] LABS: HCT 43.6 % (39.0-53.0); HGB 13.7 gm/dL (13.0-17.5); MCH 31.8 pg (25.0-35.0); MCHC 31.3 g/dL (31.0-37.0); MCV 101.3 fL (80.0-100.0); Macrocytosis Slight; Mean Platelet Volume 9.1; Platelet Count 144 k/uL (150-450); RDW 13.4 % (11.5-15.5); WBC 6.7 k/uL (3.8-10.6)
[2021-07-30 19:31] LABS: ALT 12 U/L (10-49); AST 22 U/L (14-35); African American GFR (CKD) 94.5 (60.0-200.0); Albumin 3.9 g/dL (3.8-4.9); Albumin/Globulin Ratio 1.54 (1.60-3.17); Alkaline Phosphatase 64 U/L (41-126); BUN/Creat Ratio 15.44 Ratio (12.00-20.00); Blood Urea Nitrogen 14.9 mg/dL (9.0-27.0); Calcium 8.7 mg/dL (8.7-10.3); Carbon Dioxide 22.9 mmol/L (20.0-27.5); Chloride 106 mmol/L (96-109); Chol/HDL Ratio 3.37 Ratio; Globulin 2.5 g/dL (1.6-3.3); Glucose 95 mg/dL (70-110); LDL Cholesterol,Calculated 98.9 mg/dL (0.0-131.0); Non-African American GFR(CKD) 81.5 (60.0-200.0); Potassium 4.3 mmol/L (3.5-5.5); Sodium 140 mmol/L (135-145); Total Protein 6.4 g/dL (6.2-8.2); VLDL Calculation 16.42 mg/dL (5.00-40.00)
== END | disposition home or self-care (01) ==
LOC: LABWHC1 11:46
PROVIDERS: ATTEND Family Medicine
DX: I48.91 Unspecified atrial fibrillation (principal); R97.20 Elevated prostate specific antigen [PSA]; I10 Essential (primary) hypertension
CPT/HCPCS: 36415; 80053; 80061; 84153; 84443; 85027

== ENCOUNTER → 2021-08-11 | Outpatient (CLI) | payer MEDICARE, BC | END | disposition home or self-care (01) | LOC: LABWHC1 13:33 | PROVIDERS: ATTEND Internal Medicine Cardiovascular Disease | DX: I48.19 Other persistent atrial fibrillation (principal) | CPT/HCPCS: 93005 ==

== ENCOUNTER → 2022-02-15 | Outpatient (CLI) | payer MEDICARE, BC ==
--- NOTE | 2022-02-17 10:59 | MR ---
EXAMINATION TYPE: MR Prostate wo/w con DATE OF EXAM: 02/15/2022 12:53 PM COMPARISON: Prostate MRI 02/19/2019 CLINICAL INDICATION:Male, 66 years old with history of C61 PROSTATE CANCER; TECHNIQUE: Multi-planar, multi-sequence imaging of the pelvis is performed prior to and following the uncomplicated administration of bolus intravenous gadolinium. 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 "Bullet" Volume: 45.95 (PSA density=0.27 ng/mL/mL) CENTRAL GLAND (Central and Transition Zones/CZ+TZ): Somewhat ill-defined low T2 signal seen throughout the central gland apex to base measuring roughly 1 5 x 12 mm. The restricted diffusion extends towards the distal prostatic urethra and into and around the membranous urethra. This is best appreciated on diffusion-weighted imaging series 804 image 144. These findings are not definitively seen on prior in 2019. Restricted diffusion extends to the membranous urethra. PERIPHERAL ZONE (PZ): Bilateral linear, indistinct wedgelike areas of low ADC, and low T2 signal, No evidence of masslike a bnormality, or localized perfusional hypervascularity, to further suggest a focus of clinically signi ficant prostate cancer. (PI-RADS 2) SEMINAL VESICLES (SV): Symmetric and unremarkable. PERIPROSTATIC TISSUES: Unremarkable. LYMPH NODES: Prominent external iliac lymph nodes seen bilaterally measuring up to 13 mm in short axis on the righ t and 9 mm in short axis on the left. Left external iliac artery lymph node is also present measuring up to 9 mm in short axis. REMAINING PELVIS: Circumferential bladder wall thickening with trabeculations likely secondary to chronic bladder outfl ow obstruction. No abnormal free or organized intrapelvic fluid collection. No pathologic bowel dilation or mural thickening. Colonic diverticulosis. OSSEOUS STRUCTURES: No suspicious osseous abnormality. IMPRESSION: PI-RADS 5 lesion predominantly within the right central mid gland and apex but extends across midline and towards the distal prosthetic urethra and membranous urethra with restricted diffusion. Addition ally there are prominent suspicious lymph nodes within the pelvis consider, gallium-68 PSMA PET/CT fo r further evaluation.
== END | disposition home or self-care (01) ==
LOC: RADMRIMAIN 11:36
PROVIDERS: ATTEND Urology
DX: C61 Malignant neoplasm of prostate (principal)
CPT/HCPCS: 72197; A9585

== ENCOUNTER → 2022-09-08 | Outpatient (CLI) | payer MEDICARE, BC ==
--- NOTE | 2022-09-08 16:55 | P.PN ---
Subjective DATE: 09/08/2022 FOLLOW UP VISIT. Patient with obstructive sleep apnea hypopnea syndrome return to sleep center for follow-up visit. Information from previous visit have been reviewed. This is first visit after patient received new unit from [employer]. Patient is using PAP equipment every night for the whole night, getting PAP supplies in time. The patient does not have significant problems with the mask, PAP unit and humidification. [place] sleepiness scale is 6, which is normal. I checked information from PAP unit. PAP unit pressure 8-13, average around 11 cm H2O. Usage is 100 % for more then 4 hours, average 8.5 hours per night. Apnea Hypopnea Index is 4.6, which is normal, but close to the border. MEDICATIONS:1. Losartan 50 mg once a day 2. Metoprolol 25 mg twice a day 3. Eliquis 5 mg twice a day 4. Furosemide 20 mg once a day 5. Pantoprazole 40 mg once a day 6. Famotidine 40 mg once a day 7. Levothyroxine 75 g once a day 8. Atorvastatin 20 mg once a day 9. Flomax 0.4 mg once a day During physical exam: GENERAL: A pleasant patient without any distress. VITAL SIGNS: BP 111/75, HR 68, RR 18, weight 250, temperature 98.0, oxygen saturation at room air 97 % . HEENT: PERRLA, EOMI.low position of soft palate, Mallapati 3 . NECK: Supple. No JVD. LUNGS: Clear to percussion and to auscultation. Good air exchange. No wheezing or rhonchi. HEART: S1, S2 regular. ABDOMEN: Soft and nontender. Obese EXTREMITIES: No clubbing or cyanosis. FURNITURE INSTALLER: Awake, alert, and oriented x3. No focal deficit. Impressions: 1. Obstructive sleep apnea-hypopnea syndrome. Patient demonstrated great compliance with treatment, benefiting from treatment. 2. Obesity. 3. History of atrial fibrillation. Status post several cardioversions. Presently regular rhythm. 4. Hypertension. 5. Prostate cancer, presently on radiation therapy. 6. Status post hernia repair. 7. Acid reflux. Plan: 1. Continue using PAP equipment every night for the whole night. I changed pressure in CPAP unit to 8-14 cm of water. 2. To change air filter at least 1-2 times per month. 3. PAP unit should stay lower then position of the head. 4. Advised patient to remove all remaining water from humidifier canister daily and make it dry after each usage. Refill canister with fresh distilled water before each usage. 5. Sleep hygiene with regular time in bed for at least 8 hours. 6. Precautions related to driving. No driving if feel any sleepiness. 7. I will maintain prescription for PAP supplies including mask, tube, filters. 8. Follow up visit in 6 months or earlier if patient has any problems. 9. Watching and losing weight. Thank you very much for allowing me to participate in the management of your patient. Kai Lopez MD, PhD, FAASM. Diplomat of [place] [employer], Sleep Medicine Board by [place] [employer] Needle Felt Making Machine Operator of [facility] [place]
== END ==
LOC: 3 N SLEEP 16:00
PROVIDERS: ATTEND Internal Medicine
DX: G47.33 Obstructive sleep apnea (adult) (pediatric) (principal); E66.9 Obesity, unspecified; K21.9 Gastro-esophageal reflux disease without esophagitis; I48.91 Unspecified atrial fibrillation; F17.200 Nicotine dependence, unspecified, uncomplicated; I10 Essential (primary) hypertension; C61 Malignant neoplasm of prostate; Z99.89 Dependence on other enabling machines and devices; Z79.890 Hormone replacement therapy; Z79.899 Other long term (current) drug therapy

== ENCOUNTER → 2023-03-09 | Outpatient (CLI) | payer MEDICARE, BC ==
[2023-03-10 03:22] LABS: Prostate Specific Antigen <0.01 ng/mL (0.000-4.500); Testosterone <10.00 ng/dL (86.98-780.10)
== END | disposition home or self-care (01) ==
LOC: LABWHC1 14:26
PROVIDERS: ATTEND Radiology Radiation Oncology
DX: C61 Malignant neoplasm of prostate (principal); Z79.818 Long term (current) use of other agents affecting estrogen receptors and estrogen levels
CPT/HCPCS: 36415; 84153; 84403

== ENCOUNTER → 2023-03-09 | Outpatient (CLI) | payer MEDICARE, BC ==
--- NOTE | 2023-03-09 14:20 | P.PN ---
Subjective DATE: 03/09/2023 FOLLOW UP VISIT. Patient with obstructive sleep apnea hypopnea syndrome return to sleep center for follow-up visit. Information from previous visit have been reviewed. Patient is using PAP equipment every night for the whole night, getting PAP supplies in time. The patient does not have significant problems with the mask, PAP unit and humidification. [place] sleepiness scale is 6, which is normal. I checked information from PAP unit. PAP unit pressure 8-14, average 9.4 cm H2O. Usage is 100 % for more then 4 hours, average 8.3 hours per night. Mask feet 100% Apnea Hypopnea Index is 3.8, which is normal. MEDICATIONS:1. Losartan 50 mg once a day 2. Metoprolol 25 mg twice a day 3. Eliquis 5 mg twice a day 4. Pantoprazole 40 mg once a day 5. Famotidine 40 mg once a day 6. Levothyroxine 75 g once a day 7. Atorvastatin 20 mg once a day During physical exam: GENERAL: A pleasant patient without any distress. VITAL SIGNS: BP 118/77, HR 77, RR 16 , weight 255.0, temperature 98.0, oxygen saturation at room air 95 % . HEENT: PERRLA, EOMI.low position of soft palate, Mallapati 3 . NECK: Supple. No JVD. LUNGS: Clear to percussion and to auscultation. Good air exchange. No wheezing or rhonchi. HEART: S1, S2 regular. ABDOMEN: Soft and nontender.[] EXTREMITIES: No clubbing or cyanosis. STEWARD/STEWARDESS CHIEF CARGO VESSEL: Awake, alert, and oriented x3. No focal deficit. Impressions: 1. Obstructive sleep apnea-hypopnea syndrome. Patient demonstrated great compliance with treatment, benefiting from treatment. 2. History of atrial fibrillation, status post cardioversion in the past. 3. Hypertension. 4. History of prostate cancer, status post radiation therapy. 5. Obesity. 6. Status post hernia repair. 7. Acid reflux. Plan: 1. Continue using PAP equipment every night for the whole night. 2. To change air filter at least 1-2 times per month. 3. PAP unit should stay lower then position of the head. 4. Advised patient to remove all remaining water from humidifier canister daily and make it dry after each usage. Refill canister with fresh distilled water before each usage. 5. Sleep hygiene with regular time in bed for at least 8 hours. 6. Precautions related to driving. No driving if feel any sleepiness. 7. I will maintain prescription for PAP supplies including mask, tube, filters. 8. Watching weight. 9. Follow up visit in 6 months or earlier if patient has any problems. Thank you very much for allowing me to participate in the management of your patient. Kai Lopez MD, PhD, FAASM. Diplomat of [employer], Sleep Medicine Board by [employer] Organ Builder of [facility] [place]
== END ==
LOC: 3 N SLEEP 13:41
PROVIDERS: ATTEND Internal Medicine
DX: G47.33 Obstructive sleep apnea (adult) (pediatric) (principal); I48.91 Unspecified atrial fibrillation; I10 Essential (primary) hypertension; E66.9 Obesity, unspecified; K21.9 Gastro-esophageal reflux disease without esophagitis; F17.200 Nicotine dependence, unspecified, uncomplicated; Z98.890 Other specified postprocedural states; Z79.890 Hormone replacement therapy; Z92.3 Personal history of irradiation; Z85.46 Personal history of malignant neoplasm of prostate; Z99.89 Dependence on other enabling machines and devices; Z79.01 Long term (current) use of anticoagulants; Z79.899 Other long term (current) drug therapy
CPT/HCPCS: 99212

== ENCOUNTER → 2023-11-09 | Outpatient (CLI) | payer MEDICARE, BC | LOC: 3 N SLEEP 13:00 | PROVIDERS: ATTEND Internal Medicine | CPT/HCPCS: 99212 ==

== ENCOUNTER → 2023-12-04 | Outpatient (CLI) | payer MEDICARE, BC ==
--- NOTE | 2023-12-04 13:40 | CT ---
EXAMINATION TYPE: CT chest wo con CT DLP: 701 mGycm, Automated exposure control for dose reduction was used. DATE OF EXAM: 12/04/2023 1:21 PM COMPARISON: None CLINICAL INDICATION: Male, 68 years old with history of Z72.0 tobacco use; PHH, OCCASIONAL SMOKER TECHNIQUE: Multiple axial images were obtained through the chest. Sagittal and coronal reformats were created for review. Contrast used: mL of (None if empty) Oral contrast used: (None if empty) FINDINGS: LUNGS/ PLEURA: No focal consolidation, pneumothorax or pleural effusion. No clinically significant pu lmonary nodules. AIRWAY: Patent and unremarkable. HEART: Size within normal limits. MEDIASTINUM: No gross evidence of adenopathy. VASCULATURE: No aortic aneurysm. MUSCULOSKELETAL: Mild disc degeneration changes are present throughout the thoracolumbar spine. SOFT TISSUES/LYMPH NODES: Unremarkable. LOWER NECK: No significant findings. UPPER ABDOMEN: Simple appearing hepatic cysts. IMPRESSION: 1. No clinically significant pulmonary nodules. Consider yearly low-dose lung cancer screening. 2. No evidence for acute process. Follow up recommendations for incidental pulmonary nodules, if there are any, are per [employer] [place] [employer] [employer] or [employer]. https://radiopaedia.org/articles/quxswladcr-[email or web address]?lang=us
== END | disposition home or self-care (01) ==
LOC: RADCTMAIN 13:05
PROVIDERS: ATTEND Family Medicine
DX: Z72.0 Tobacco use (principal)
CPT/HCPCS: 71250

== ENCOUNTER → 2024-07-03 | Outpatient (CLI) | payer MEDICARE, BC ==
[2024-07-03 13:44] VITALS: BP 132/76; PULSE 64; RESP 16; TEMP 98.3
--- NOTE | 2024-07-03 14:06 | P.PROGSL ---
Subjective DATE: 07/03/2024 FOLLOW UP VISIT. Patient with obstructive sleep apnea hypopnea syndrome return to sleep center for follow-up visit. Information from previous visit have been reviewed. Patient is using PAP equipment every night for the whole night, getting PAP supplies in time. The patient does not have significant problems with the mask, PAP unit and humidification. [place] sleepiness scale is 2, which is perfect. I checked information from PAP unit. PAP unit pressure 8-14, average 9 cm H2O. Usage is 100% for more then 4 hours, average 8.5 hours per night. Leak time is increased to average 26 minutes. Apnea Hypopnea Index is 4.3, which is normal. MEDICATIONS have been reviewed, please see below. During physical exam: GENERAL: A pleasant patient without any distress. VITAL SIGNS: Please see below, weight is 255 lbs. HEENT: PERRLA, EOMI.low position of soft palate, Mallapati 3 . NECK: Supple. No JVD. LUNGS: Clear to percussion and to auscultation. Good air exchange. No wheezing or rhonchi. HEART: S1, S2 regular. ABDOMEN: Soft and nontender.[] EXTREMITIES: No clubbing or cyanosis. VIDEO CONTROL OPERATOR: Awake, alert, and oriented x3. No focal deficit. Impressions: 1. Obstructive sleep apnea-hypopnea syndrome. Patient demonstrated great compliance with treatment, benefiting from treatment. 2. Mild obesity, BMI 36.5, patient increased weight and 4 pounds comparing with previous visit. 3. Hypertension. 4. History of atrial fibrillation, status post cardiac ablation. 5. Hypothyroidism. 6. Acid reflux. Plan: 1. Continue using PAP equipment every night for the whole night. 2. Sleep hygiene with regular time in bed for at least 7.5-8 hours 3. PAP unit should stay lower then position of the head. 4. Advised patient to remove all remaining water from humidifier canister daily and make it dry after each usage. Refill canister with fresh distilled water before each usage. 5. Watching and losing weight. 6. Precautions related to driving. No driving if feel any sleepiness. 7. I will maintain prescription for PAP supplies including mask, tube, filters. 8. Follow up visit in 8 months or earlier if patient has any problems. Thank you very much for allowing me to participate in the management of your patient. Kai Lopez MD, PhD, FAASM. Diplomat of [place] [employer], Sleep Medicine Board by [employer] Energy Control Officer of [facility] [place] Objective - Vital Signs Vital Signs: Vital Signs Temp 98.3 F 07/03/24 13:43 Pulse 64 07/03/24 13:43 Resp 16 07/03/24 13:43 BP 132/76 07/03/24 13:43 Pulse Ox 96 07/03/24 13:43 FiO2 Intake & Output 07/02/24 07/03/24 07/03/24 18:59 06:59 18:59 Weight 115.666 kg Home Medications: Home Medications Medication Instructions Recorded Confirmed Type Multivitamins, Thera [Multivitamin 1 tab PO DAILY 02/27/19 07/03/24 History (formulary)] Pantoprazole [Protonix] 40 mg PO DAILY 02/27/19 07/03/24 History Prostate 2.4 Supplement 1 tab PO DAILY 02/27/19 07/18/19 History Apixaban [Eliquis] 5 mg PO BID tab 02/28/19 07/03/24 Rx Losartan Potassium 50 mg PO DAILY #30 tablet 02/28/19 07/03/24 Rx Metoprolol Tartrate [Lopressor] 25 mg PO BID #60 tab 02/28/19 07/03/24 Rx Cimetidine [Tagamet] 300 mg PO HS 07/04/19 07/23/19 History Famotidine 40 mg PO HS 07/03/24 07/03/24 History Furosemide [Lasix] 20 mg PO DAILY 07/03/24 07/03/24 History Vibegron [Gemtesa] 75 mg PO DAILY 07/03/24 07/03/24 History
== END ==
LOC: 3 N SLEEP 13:22
PROVIDERS: ATTEND Internal Medicine
DX: G47.33 Obstructive sleep apnea (adult) (pediatric) (principal); E66.01 Morbid (severe) obesity due to excess calories; I10 Essential (primary) hypertension; E03.9 Hypothyroidism, unspecified; K21.9 Gastro-esophageal reflux disease without esophagitis; Z68.36 Body mass index [BMI] 36.0-36.9, adult; Z86.79 Personal history of other diseases of the circulatory system
CPT/HCPCS: 99212

== ENCOUNTER → 2024-09-20 | Outpatient (CLI) | payer MEDICARE, BC ==
--- NOTE | 2024-09-20 15:18 | US ---
EXAMINATION TYPE: US kidneys/renal and bladder DATE OF EXAM: 09/20/2024 COMPARISON: NONE CLINICAL INDICATION: Male, 68 years old with history of R31.29 OTHER MICROSCOPIC HEMATURIA; pt had bl ood in his urine and discomfort 1 month ago, one time, pt states it felt like a piece of cement came out of his urine TECHNIQUE: Grayscale imaging of the bilateral kidneys and urinary bladder: FINDINGS: EXAM MEASUREMENTS: Right Kidney: 14.4x6.4x5.5 cm Left Kidney: 10.5x5.0x5.0 cm slightly limited exam due to overlying gas Right Kidney: Multiple anechoic areas seen, Largest: 1. 5.8 x 5.5 x 6.1cm inferior pole. 2. 5.6x4.9x5.1cm kidney. Left Kidney: No hydronephrosis or masses seen Bladder: wnl Bilateral Jets seen: Yes IMPRESSION: [facility], , 09/20/2024 3:16 PM
== END | disposition home or self-care (01) ==
LOC: RADUSWWP 14:33
PROVIDERS: ATTEND Urology
DX: R31.29 Other microscopic hematuria (principal)
CPT/HCPCS: 76770